=== PATIENT | male | born 1970 | race Two or more races ===

== ENCOUNTER 2017-06-04 08:43 | Day surgery (SDC) | payer BC ==
[2017-06-04] VITALS (8 sets, daily range): BP systolic 94–106; BP diastolic 56–80
[~2017-06-04] VITALS: Ht 185.4 cm; Wt 88.5 kg
--- NOTE | 2017-06-04 06:41 | Anethesia Preoperative Eval ---
Anesthesia Pre-op PMH/ROS General Date of Evaluation: Jun 04, 2017 Time of Evaluation: 06:41 Anesthesiologist: singh ASA Score: ASA 3 Mallampati Score Class I : Soft palate, uvula, fauces, pillars visible Class II: Soft palate, uvula, fauces visible Class III: Soft palate, base of uvula visible Class IV: Only hard plate visible Mallampati Classification: Class II Surgeon: suzanne Diagnosis: abdominal pain Surgical Procedure: egd Anesthesia History: none Social History: smoking - nonsmoker Family History: no anesthesia problems Allergies: Coded Allergies: METOCLOPRAMIDE (Verified Allergy, Severe, Shortness of Breath, 07/05/15) PAROXETINE (Verified Allergy, Severe, Shortness of Breath, 07/05/15) PENICILLINS (Verified Allergy, Unknown, 07/05/15) Medications: see eMAR Past Medical History Cardiovascular: Reports: other - hypercholesterolemia Gastrointestinal/Genitourinary: Reports: GERD, other - nephrectomy, colitis Neurologic/Psychiatric: Reports: depression/anxiety Musculoskeletal/Integumentary: Reports: other - back pain Anesthesia Pre-op Phys. Exam Physician Exam Constitutional: NAD Neurologic: CN 2-12 intact Cardiovascular: RRR Respiratory: CTA Gastrointestinal: S/NT/ND Airway Exam Mallampati Score: Class II MO: full Neck: supple TMD: 2fb ROM: full Teeth: intact Anesthesia Pre-op A/P Risk Assessment & Plan Assessment: asa3 Plan: mac Status Change Before Surgery: No Pre-Antibiotics Drug: GUERDA Jasmine Jun 04, 2017 06:41
[~2017-06-04 08:43] MED LIST: Atropine Inj 1mg/10ml Syr IV PRN; DiphenhydrAMINE 50mg/ml Inj IVP PRN; FLUVOXAMINE MAL50 MG ORAL; LR 1000ml 1,000 ML IVLG SCH; Midazolam 2mg/2ml Inj IVP PRN; OMEPRAZOLE20 M2 ORAL; PRAVASTATIN SOD20 M1 ORAL; fentaNYL 100 mcg/2 mL IV PRN
[2017-06-04] MEDS ORDERED: PANTOPRAZOLE SO40 MG ORAL (09:28)
[2017-06-04] MEDS ORDERED: KLONOPIN0.5 MG ORAL (09:29)
[2017-06-04] MEDS ORDERED: LR 1000ml ONE (09:30)
[2017-06-04] MEDS ORDERED: Lidocaine 1% MPF 10mg/ml 5ml ONE (09:30)
[2017-06-04] MEDS ORDERED: Midazolam 2mg/2ml Inj ONE (09:30)
[2017-06-04] MEDS ORDERED: Propofol 200mg/20ml IV ONE (09:30)
--- NOTE | 2017-06-04 09:35 | Short Stay Surgery H&P ---
History of Present Illness History of Present Illness Chief Complaint Epigastric pains/GERDs HPI Fan Newsome is a 46 year old male who was admitted on for Heartburn/ abdominal pain Patient History Allergies: Coded Allergies: METOCLOPRAMIDE (Verified Allergy, Severe, Shortness of Breath, 07/05/15) PAROXETINE (Verified Allergy, Severe, Shortness of Breath, 07/05/15) PENICILLINS (Verified Allergy, Unknown, 07/05/15) PAST MEDICAL HISTORY: (1) Renal stones Past Surgeries: (1) S/p nephrectomy Social History: Medication History Scheduled Fluvoxamine Maleate (Fluvoxamine Maleate), 100 MG ORAL BEDTIME, (Reported) Pantoprazole* (Pantoprazole*), 40 MG ORAL DAILY, (Reported) Pravastatin Sod* (Pravastatin Sod*), 20 MG ORAL BEDTIME, (Reported) Scheduled PRN Clonazepam* (Klonopin*), 0.5 MG ORAL Q6H PRN for For Anxiety, (Reported) Discontinued Medications Omeprazole (Omeprazole), 20 MG ORAL DAILY, (Reported) Discontinued Reason: Pt stopped taking med Review of Systems Cardiovascular: Reports: no symptoms Respiratory: Reports: no symptoms Skeletal: Reports: no symptoms Gastrointestinal: Reports: gastro esophageal reflux disease Genitourinary: Reports: no symptoms Neurologic: Reports: no symptoms Endocrine: Reports: no symptoms Hematologic: Reports: no symptoms Physical Exam Skin: normal HENT: normal Heart: normal Lungs: normal Abdomen: abnormal Extremities: normal Genitourinary: normal Plan Plan of Care Upper GI endoscopy and biopsy Preop Interventions None. Summary of Findings See the report Final Diagnosis: Attestation Are the patient's medical conditions optimized for surgery? Attestation Response: yes AVINASH BORGES Jun 04, 2017 09:35
--- NOTE | 2017-06-04 10:13 | Endoscopy Procedure Note ---
Endoscopy Procedure Note General Indication for Procedure: Throat spasm and GERDs Procedures Performed: EGD - Significant amount of food particles in stomach consistent with gastroparesis otherwise normal upper GI endoscopy, biopsy was per random from gastric body. Normal pharyngo-laryngeal area. Specimen: yes Pt Tolerated Procedure Well: Yes Estimated Blood Loss: none Anesthesia Anesthesiologist: Dr. Infante Anesthesia: moderate sedation Medications Medication Given: see anesthesia record Inserted Devices Implant(s) used?: No Quality Quality of Bowel Preparation: Poor Was there any complications?: No GI Core Measures 50 yrs or older w/o bx or poly: Not Applicable 10yrs. F/U not recommended: Not Applicable If not recommended, why?: Med reason:<3 yrs.: System Reason:<3 yrs.: AVINASH BORGES Jun 04, 2017 10:13
--- NOTE | 2017-06-04 10:14 | Discharge Instructions ---
Discharge Instructions Discharge Instructions Follow up with: See the docotor in office after two weeks For Congestive Heart Failure Reminder Report to your physician any weight gain of 5 pounds or more in one week. AVINASH BORGES Jun 04, 2017 10:14
--- NOTE | 2017-06-04 11:39 | Immediate Post-Op Evaluation ---
Immediate Post-Op Evalulation Immediate Post-Op Evalulation Procedure: egd Date of Evaluation: Jun 04, 2017 Time of Evaluation: 10:37 IV Fluids: 250ml lr Blood Products: none Estimated Blood Loss: negligible Blood Pressure Systolic: 104 Blood Pressure Diastolic: 76 Pulse Rate: 78 Respiratory Rate: 18 O2 Sat by Pulse Oximetry: 100 Temperature (Fahrenheit): 97.8 Pain Score (1-10): 0 Nausea: No Vomiting: No Complications none Patient Status: awake, reacts, patent Hydration Status: adequate Drug: GUERDA Jasmine Jun 04, 2017 11:39
--- NOTE | 2017-06-04 11:41 | 48 Hour Post Anesthesia Eval ---
Post Anesthesia Evaluation Procedure: egd Date of Evaluation: Jun 04, 2017 Time of Evaluation: 10:39 Blood Pressure Systolic: 106 0: 73 Pulse Rate: 77 Respiratory Rate: 18 Temperature (Fahrenheit): 97.8 O2 Sat by Pulse Oximetry: 100 Airway: patent Nausea: No Vomiting: No Pain Intensity: 0 Hydration Status: adequate Cardiopulmonary Status: stable Mental Status/LOC: patient returned to baseline Post-Anesthesia Complications: none Follow-up care needed: N/A GUERDA BRAND Jun 04, 2017 11:40
--- NOTE | 2017-06-04 21:00 | Operative Note - Dictated ---
DATE OF OPERATION: 06/04/2017 SURGEON: Chika Santamaria M.D. PROCEDURE: Esophagogastroduodenoscopy with biopsy. PREOPERATIVE DIAGNOSES: History of gastroesophageal reflux, esophageal spasm, and laryngopharyngeal pressure and spasm. POSTOPERATIVE DIAGNOSIS: Significant amount of undigested food in the stomach consistent with underlying possible gastroparesis. Otherwise, normal upper gastrointestinal endoscopy. Biopsy was taken per random from gastric body (see the detailed examination). MEDICATION USED: Per Dr. Infante, anesthesiologist. INSTRUMENT: GIF Olympus upper gastrointestinal video endoscope. DESCRIPTION OF PROCEDURE: The patient after arriving in endoscopy unit was told about risks and benefits of the procedure, which he accepted and signed the informed consent. The applicant had been experiencing significant intermittent pressure over the laryngopharyngeal area, but denied having any history of dysphagia. In the past, the patient has had a history of gastroesophageal reflux for which he had been adequately treated with acid suppressive such as PPI and H2 blockers. However, he still continued to complain of laryngeal spasm and pressures. At this point, the scope was gradually passed through the pharynx and laryngeal area, which revealed normal findings. The vocal cords also looked at and they were also normal. No pathology was found here. The scope at this time was guided into the esophagus and gradually advanced towards gastroesophageal junction. The entire length of the esophagus also looked completely normal without any intraluminal pathology such as stricture, inflammatory process, ulceration, tumors, polyps, etc. At this time, the scope was passed through normal-looking gastroesophageal junction as there was no any evidence of Ryder's mucosa or hiatal hernia. Finally, the scope was guided into the stomach and immediately was seen significant amount of undigested food blocking the passage of the scope all along the stomach. This was consistent with possible underlying gastroparesis as the patient did not have any obstruction in the pyloric area. Finally, scope was passed through the pylorus and duodenum and second portion of duodenum were found to be completely normal. The scope was pulled back into the stomach at this time and there was no any intragastric pathology such as ulcers, tumors, polyps, strictures, or twists of the stomach. Finally, one random biopsy from gastric body was obtained and the scope was gradually pulled out and no other pathology was found except the significant amount of undigested food in the stomach, which raises the possibility of underlying gastroparesis being responsible to the patient's reflux symptoms and clinical symptomatology as well. COMMENT: The applicant has had significant amount of anxiety and stress involving his life, and as such, he has been experiencing pressure over his throat area. This condition might be secondary to reflux caused by gastroparesis, which I think is the main issue of his problem. In the past, the patient has been treated with Reglan, which is consistent with this diagnosis, however, he cannot tolerate this medication due to side effects. At this point, I suggested that the patient should receive erythromycin of 250 mg twice a day for the present time and we have to refer him for further study such as gastric emptying and barium swallow in the very near future. He might also be in need of having further studies such as pH manometry and esophageal impedance examinations. These issues will be discussed with the patient in his very near future of his examination. Said Wilfrid Santamaria DR: MARCIA JOB#: [id number] CC:
== END 2017-06-04 11:50 | disposition home or self-care (01) ==
LOC: GAS 08:43
DX: K21.9 Gastro-esophageal reflux disease without esophagitis (principal); K22.4 Dyskinesia of esophagus; K29.50 Unspecified chronic gastritis without bleeding; Z90.5 Acquired absence of kidney; Z88.0 Allergy status to penicillin; Z88.8 Allergy status to other drugs, medicaments and biological substances; F32.9 Major depressive disorder, single episode, unspecified; F41.9 Anxiety disorder, unspecified; E78.00 Pure hypercholesterolemia, unspecified; Z87.442 Personal history of urinary calculi
CPT/HCPCS: 43239; J2250; J2704; J7120; 94003; 94150